=== PATIENT | female | born 1960 | race African-American/Black ===

== ENCOUNTER 2020-06-28 10:45 | Emergency (ER) | payer SELFPAY ==
[2020-06-28] MEDS ORDERED: Lorazepam 2 MG/ML VIAL ONE (11:20)
[2020-06-28 11:43] LABS: #Monocytes 0.6 10x3/uL (0.0-1.1); #Neutrophils 3.2 10x3/uL (1.5-8.4); %Basophils 0.7 % (0.0-2.0); %Eosinophils 0.5 % (0.0-6.0); %Lymphocytes 30.5 % (18.0-47.0); %Monocytes 11.2 % (0.0-10.0); %Neutrophils 56.7 % (40.0-75.0); Hemoglobin 12.3 g/dL (12.0-15.5); Mean Corpuscular Hemoglobin 29.9 pg (27.0-33.0); Mean Corpuscular Volume 87.9 fl (81.6-98.3); Mean Platelet Volume 10.7 fl (7.4-10.4); Platelet Count 249 10x3/uL (150-450); RBC Distribution Width 12.6 % (11.5-14.5); Red Blood Cell (RBC) Count 4.12 10x6/uL (3.90-5.03); White Blood Cell (WBC) Count 5.7 10x3/uL (3.5-10.5)
[2020-06-28 11:57] LABS: ALT (SGPT) 29 U/L (8-55); AST (SGOT) 33 U/L (5-34); Albumin 3.9 g/dL (3.5-5.0); Alkaline Phosphatase 53 U/L (40-110); Anion Gap 12 mmol/L (10-20); BUN (Urea Nitrogen) 15 mg/dL (9.8-20.1); Bilirubin, Total 1.2 mg/dL (0.2-1.2); Calc. Creatinine Clearance 0 mL/min (70-130); Carbon Dioxide 24 mmol/L (22-29); Chloride 105 mmol/L (98-107); Globulin 3.4 g/dL (2.4-3.5); Glucose 136 mg/dL (70-105); Potassium 3.7 mmol/L (3.5-5.1); Protein, Total 7.3 g/dL (6.0-8.3); Sodium 137 mmol/L (136-145)
[2020-06-28 15:31] LABS: Bilirubin Neg (Negative); Blood, Urine Negative (Negative); Clarity Clear (Clear); Glucose, Urine (Dipstick) Normal (Negative); Ketone, Urine Negative (Negative); Leukocyte Negative (Negative); Nitrite Negative (Negative); Protein, Urine (Dipstick) 15 mg/dl (Neg-Trace)
[2020-06-28 15:49] LABS: Amphetamine Not Detected (NotDetected); Barbiturates Screen Not Detected (NotDetected); Benzodiazepine Screen Detected (NotDetected); Cocaine Metabolite Screen Detected (NotDetected); Methadone Not Detected (NotDetected); Methamphetamine Not Detected (NotDetected); Opiate Screen Not Detected (NotDetected); Oxycodone Screen Not Detected (NotDetected); Phencyclidine (PCP) Not Detected (NotDetected); THC/Cannabinoid Screen Not Detected (NotDetected); Tricyclic Screen Not Detected (NotDetected)
== END 2020-06-28 15:37 | disposition home or self-care (01) ==
LOC: CSHERS 10:45
DX: F14.10 Cocaine abuse, uncomplicated (principal); E78.5 Hyperlipidemia, unspecified; I10 Essential (primary) hypertension; Z86.73 Personal history of transient ischemic attack (TIA), and cerebral infarction without residual deficits; F17.210 Nicotine dependence, cigarettes, uncomplicated
CPT/HCPCS: 80053; 80306; 81003; 85025; 96374; J2060

== ENCOUNTER 2022-09-19 13:23 | Observation (INO) | payer SELFPAY ==
[2022-09-19 14:01] LABS: Hemoglobin 14.2 g/dL (12.0-15.5); Mean Corpuscular HGB CONC 34.5 g/dL (32.0-36.0); Mean Corpuscular Hemoglobin 30.1 pg (27.0-33.0); Mean Corpuscular Volume 87.1 fl (81.6-98.3); Mean Platelet Volume 11.1 fl (7.4-10.4); Platelet Count 228 10x3/uL (150-450); RBC Distribution Width 11.7 % (11.5-14.5); Red Blood Cell (RBC) Count 4.72 10x6/uL (3.90-5.03); White Blood Cell (WBC) Count 4.1 10x3/uL (3.5-10.5)
[2022-09-19 14:24] LABS: MDiff Complete? YES
[2022-09-19 14:29] LABS: Acetaminophen Less than 10 mcg/mL (10.0-30.0); Alcohol Less than 10.0 mg/dL (Less than 10); Lipase 56 U/L (8-78); Salicylate Less than 8.0 mg/dL (15.0-30.0)
[2022-09-19 14:38] LABS: Bilirubin Neg (Negative); Blood, Urine Negative (Negative); Clarity Clear (Clear); Glucose, Urine (Dipstick) Normal (Negative); Ketone, Urine Negative (Negative); Leukocyte Negative (Negative); Nitrite Negative (Negative); Protein, Urine (Dipstick) Negative (Neg-Trace); Specific Gravity, Urine 1.015 (1.005-1.030)
[2022-09-19 14:38] LABS: ALT (SGPT) 24 U/L (8-55); AST (SGOT) 30 U/L (5-34); Albumin 4.1 g/dL (3.5-5.0); Alkaline Phosphatase 57 U/L (40-110); Anion Gap 15 mmol/L (10-20); BUN (Urea Nitrogen) 19 mg/dL (9.8-20.1); Bilirubin, Total 0.5 mg/dL (0.2-1.2); Calc. Creatinine Clearance 0 mL/min (70-130); Calcium 9.6 mg/dL (7.8-10.44); Carbon Dioxide 22 mmol/L (22-29); Chloride 108 mmol/L (98-107); Estimated GFR 80; Globulin 3.3 g/dL (2.4-3.5); Glucose 107 mg/dL (70-105); Potassium 4.3 mmol/L (3.5-5.1); Protein, Total 7.4 g/dL (6.0-8.3); Sodium 141 mmol/L (136-145)
[2022-09-19 14:59] LABS: Amphetamine Not Detected (NotDetected); Barbiturates Screen Not Detected (NotDetected); Benzodiazepine Screen Not Detected (NotDetected); Cocaine Metabolite Screen Detected (NotDetected); Methadone Not Detected (NotDetected); Methamphetamine Not Detected (NotDetected); Opiate Screen Not Detected (NotDetected); Oxycodone Screen Not Detected (NotDetected); Phencyclidine (PCP) Not Detected (NotDetected); THC/Cannabinoid Screen Not Detected (NotDetected); Tricyclic Screen Not Detected (NotDetected)
[2022-09-19 15:16] LABS: Lymphocytes 53 % (21-51); Neutrophil 37 % (42-75)
[2022-09-19 15:17] LABS: Eosinophils 2 % (0-10); Monocytes 8 % (0-10)
[2022-09-19 15:20] LABS: Platelet Adequacy Comment Appears Adequate
[2022-09-19 15:21] LABS: RBC Morph Comment Within Normal Limits
[2022-09-19 15:25] LABS: Bacteria/HPF 2+ HPF (None Seen); CAUTI Indications for Culture Alt mental st,lethar; RBC/HPF 0-3 HPF (0-3); WBC/HPF 0-3 HPF (0-3)
[2022-09-19 15:27] LABS: Mucous/LPF 2+ LPF (<2+); Urine Culture Reflex No No
[2022-09-19] MEDS ORDERED: Ondansetron PF 4 MG/2 ML Vial IVP PRN (16:02)
[2022-09-19] MEDS ORDERED: Labetalol HCl 100 MG/20 ML VIAL SLOW IVP PRN (16:02)
[2022-09-19] MEDS ORDERED: Senokot S 8.6-50 MG TAB PO PRN (16:02)
[2022-09-19] MEDS ORDERED: Acetaminophen 325 MG TAB PO PRN (16:02)
[2022-09-19] MEDS ORDERED: Calcium Carbonate 500 MG ChewTAB PO PRN (16:02)
[2022-09-19 17:14] LABS: Troponin I Less than 0.010 ng/mL (< 0.028)
[2022-09-19 20:30] LABS: Hemoglobin A1c 5.5 % (4.0-6.0)
[2022-09-19] MEDS ORDERED: Sertraline 100 MG TAB PO SCH (21:00)
[2022-09-19] MEDS ORDERED: QUETIAPINE 200 MG PO SCH (21:00)
[2022-09-19 22:52] LABS: Troponin I Less than 0.010 ng/mL (< 0.028)
[2022-09-19] MEDS ORDERED: Meclizine HCl 12.5 MG TAB PO SCH ×2 (23:59)
[2022-09-20 00:46] VITALS: BMI 23.3
[2022-09-20] MEDS: Sodium Chloride 0.9% 1,000 ML IV SCH ×2 (01:01→02:30)
[2022-09-20] MEDS: Atorvastatin Calcium 40 MG TAB PO SCH ×2 (01:02→20:36)
[2022-09-20 05:17] LABS: ALT (SGPT) 28 U/L (8-55); AST (SGOT) 30 U/L (5-34); Albumin 3.1 g/dL (3.5-5.0); Alkaline Phosphatase 49 U/L (40-110); Anion Gap 10 mmol/L (10-20); BUN (Urea Nitrogen) 14 mg/dL (9.8-20.1); Bilirubin, Total 0.3 mg/dL (0.2-1.2); Calc. Creatinine Clearance 89 mL/min (70-130); Calcium 8.3 mg/dL (7.8-10.44); Carbon Dioxide 22 mmol/L (22-29); Cardiac Risk 2.5 (Less than 4.5); Chloride 111 mmol/L (98-107); Cholesterol 152 mg/dl (< 200 Desired); Estimated GFR 98; Globulin 2.5 g/dL (2.4-3.5); Glucose 123 mg/dL (70-105); HDL Cholesterol 61 mg/dL (>60 Neg Risk); Hemoglobin 12.7 g/dL (12.0-15.5); LDL Cholesterol, Calculated 69 mg/dL; Mean Corpuscular HGB CONC 34.1 g/dL (32.0-36.0); Mean Corpuscular Hemoglobin 29.7 pg (27.0-33.0); Mean Corpuscular Volume 87.1 fl (81.6-98.3); Mean Platelet Volume 11.2 fl (7.4-10.4); Platelet Count 204 10x3/uL (150-450); Potassium 3.7 mmol/L (3.5-5.1); Protein, Total 5.6 g/dL (6.0-8.3); RBC Distribution Width 11.9 % (11.5-14.5); Red Blood Cell (RBC) Count 4.27 10x6/uL (3.90-5.03); Sodium 139 mmol/L (136-145); Triglycerides 108 mg/dL (Less than 150); White Blood Cell (WBC) Count 3.6 10x3/uL (3.5-10.5)
[2022-09-20 05:18] LABS: MDiff Complete? YES
[2022-09-20 05:57] LABS: Eosinophils 3 % (0-10); Lymphocytes 61 % (21-51); Monocytes 5 % (0-10); Neutrophil 30 % (42-75)
[2022-09-20 05:58] LABS: Platelet Adequacy Comment Appears Adequate; RBC Morph Comment Within Normal Limits
[2022-09-20] MEDS: Aspirin 81 mg Enteric Coated Tablet PO SCH (10:06)
[2022-09-20] MEDS: Meclizine HCl 12.5 MG TAB PO SCH ×3 (10:06→23:33)
[2022-09-20] MEDS ORDERED: QUEtiapine 25 MG TAB PO SCH (21:00)
[2022-09-21 06:16] LABS: Anion Gap 11 mmol/L (10-20); BUN (Urea Nitrogen) 12 mg/dL (9.8-20.1); Calc. Creatinine Clearance 83 mL/min (70-130); Carbon Dioxide 25 mmol/L (22-29); Chloride 108 mmol/L (98-107); Estimated GFR 90; Glucose 87 mg/dL (70-105); Magnesium 1.7 mg/dL (1.6-2.6); Potassium 4.3 mmol/L (3.5-5.1); Sodium 140 mmol/L (136-145)
[2022-09-21] MEDS: Aspirin 81 mg Enteric Coated Tablet PO SCH (07:42)
[2022-09-21] MEDS: Meclizine HCl 12.5 MG TAB PO SCH (07:42)
[2022-09-21 12:00] VITALS: TEMP 98.5
[2022-09-21 12:04] VITALS: BP 131/77
== END 2022-09-21 11:57 | disposition home or self-care (01) ==
LOC: SUATTDRO 13:23 → CSHERS 13:23 → CSHTELE 23:30
PROVIDERS: ADMIT Internal Medicine; ATTEND Internal Medicine
DX: R41.82 Altered mental status, unspecified (principal); R00.1 Bradycardia, unspecified; R42 Dizziness and giddiness; I10 Essential (primary) hypertension; F17.200 Nicotine dependence, unspecified, uncomplicated; F20.9 Schizophrenia, unspecified; F31.9 Bipolar disorder, unspecified; F14.10 Cocaine abuse, uncomplicated; Z79.82 Long term (current) use of aspirin; Z79.899 Other long term (current) drug therapy; Z90.710 Acquired absence of both cervix and uterus; Z88.6 Allergy status to analgesic agent
CPT/HCPCS: 36415; 70450; 70551; 71045; 80048; 80053; 80061; 80306; 80307; 81001; 83036; 83690; 83735; 84484; 85025; 93005; 93010; 93880; 94760; 96360; 96372; G0378; J1650; J7050

== ENCOUNTER 2023-01-28 13:34 | Emergency (ER) | payer MEDICAID | END 2023-01-28 17:27 | disposition home or self-care (01) | LOC: CSHERS 13:34 | DX: M25.511 Pain in right shoulder (principal); E78.5 Hyperlipidemia, unspecified; I10 Essential (primary) hypertension; F17.210 Nicotine dependence, cigarettes, uncomplicated ==

== ENCOUNTER 2024-11-22 09:26 | Emergency (ER) | payer OTHER ==
[2024-11-22] MEDS ORDERED: Boostrix 0.5 ML (Tdap) VIAL (>/=7 yrs of age) ONE (10:03)
[2024-11-22] MEDS ORDERED: Ibuprofen 200 MG TAB ONE (11:37)
== END 2024-11-22 11:38 | disposition home or self-care (01) ==
LOC: CSHERS 09:26
DX: S01.01XA Laceration without foreign body of scalp, initial encounter (principal); I10 Essential (primary) hypertension; F17.210 Nicotine dependence, cigarettes, uncomplicated; W22.8XXA Striking against or struck by other objects, initial encounter; Z86.73 Personal history of transient ischemic attack (TIA), and cerebral infarction without residual deficits
CPT/HCPCS: 12001; 70450; 90471; 90715